=== PATIENT | female | born 1965 | race Caucasian/White ===

== ENCOUNTER 2017-01-31 21:06 | Emergency (ER) | payer MEDICAID ==
[2017-01-31 22:22] LABS: Urine Drugs of Abuse Note Disclamer
[2017-01-31 22:31] LABS: Basophils % (Auto) 0.4 % (0.0-1.8); Eosinophils % (Auto) 2.2 % (0.0-4.3); Hematocrit 41.1 % (30.3-42.9); Hemoglobin 13.8 gm/dl (10.1-14.3); Mean Corpuscular HGB Conc 34 % (30-34); Mean Corpuscular Hemoglobin 29 pg (28-32); Mean Corpuscular Volume 87 fl (79-97); Platelet Count 203 K/mm3 (140-440); Red Cell Distribution Width 13.8 % (13.2-15.2); White Blood Count 5.6 K/mm3 (4.5-11.0)
[2017-01-31 22:32] LABS: Bilirubin,Urine NEG (Negative); Blood,Urine NEG (Negative); Ketones,Urine NEG (Negative); Leukocyte Esterase,Urine NEG (Negative); Nitrite,Urine NEG (Negative); Protein,Urine <15 mg/dL mg/dL (Negative); RBC,Urine < 1.0 /HPF (0.0-6.0); Urobilinogen,Urine < 2.0 mg/dL (<2.0)
--- NOTE | 2017-01-31 22:35 | Emergency Department Report ---
ED Psych HPI - General Chief Complaint: Psych Stated Complaint: MEDICAL CLEARANCE Time Seen by Provider: 01/31/17 22:28 Source: patient Mode of arrival: Ambulatory Limitations: Altered Mental Status (INTOXICATED) - History of Present Illness Initial Comments: 51 YO FEMALE HER FOR DETOX FROM ALCOHOL. PT AHS BEEN DRINKING FOR MORE THAN 30 YRS AND FEELS UNABLE TO TAKE CARE OF HERSELF AND CANNOT STOP DRINKING. SHE IS NOT COOPERATIVE WITH MY REQUEST FOR MORE INFORMATION OR WHETHER SHE DOES OTHER DRUGS MD Complaint: altered mental status (APPEARS INTOXICATED) -: year(s) (CHRONIC HEAVER DRINKER) Associated Psychiatric Symptoms: depression History of same: Yes - Related Data Home Medications Medication Instructions Recorded Confirmed Last Taken Citalopram [celeXA] 20 mg PO QDAY 10/30/15 01/31/17 10/29/15 QUEtiapine [SEROquel] 200 mg PO BID 10/30/15 01/31/17 10/29/15 Topiramate [Topamax] 40 mg PO DAILY 10/30/15 01/31/17 10/29/15 Allergies Allergy/AdvReac Type Severity Reaction Status Date / Time No Known Allergies Allergy Verified 01/31/17 21:14 ED Review of Systems ROS: Stated complaint: MEDICAL CLEARANCE Other details as noted in HPI ED Past Medical Hx - Past Medical History Hx Psychiatric Treatment: Yes (bipolar) - Surgical History Additional Surgical History: hysterectomy - Social History Smoking Status: Current Every Day Smoker Substance Use Type: None - Medications Home Medications: Home Medications Medication Instructions Recorded Confirmed Last Taken Type Citalopram [celeXA] 20 mg PO QDAY 10/30/15 01/31/17 10/29/15 History QUEtiapine [SEROquel] 200 mg PO BID 10/30/15 01/31/17 10/29/15 History Topiramate [Topamax] 40 mg PO DAILY 10/30/15 01/31/17 10/29/15 History ED Physical Exam - General Limitations: Altered Mental Status (INTOXICATED) General appearance: appears intoxicated - Head Head exam: Present: atraumatic, normocephalic - Eye Eye exam: Present: normal appearance, EOMI - ENT ENT exam: Present: mucous membranes moist, other (MULTIPLE MISSING TEETH) - Neck Neck exam: Present: normal inspection, full ROM - Respiratory Respiratory exam: Present: normal lung sounds bilaterally. Absent: respiratory distress, wheezes, rales, rhonchi - Cardiovascular Cardiovascular Exam: Present: regular rate, normal rhythm - GI/Abdominal GI/Abdominal exam: Present: soft. Absent: distended, tenderness, guarding - Rectal Rectal exam: Present: deferred - Extremities Exam Extremities exam: Present: normal inspection, full ROM - Back Exam Back exam: Present: normal inspection, full ROM - Neurological Exam Neurological exam: Present: altered (INTOXICATED) - Psychiatric Psychiatric exam: Present: flat affect - Skin Skin exam: Present: warm, dry, intact, normal color ED Course Vital Signs 01/31/17 01/31/17 21:14 22:33 Temperature 98 F 97.7 F Pulse Rate 92 H 91 H Respiratory 18 16 Rate Blood Pressure 133/118 Blood Pressure 112/63 [Left] O2 Sat by Pulse 98 96 Oximetry ED Medical Decision Making - Lab Data Result diagrams: 01/31/17 22:13 01/31/17 22:13 Critical care attestation.: If time is entered above; I have spent that time in minutes in the direct care of this critically ill patient, excluding procedure time. ED Disposition Clinical Impression: Alcohol abuse, Cocaine abuse Alcohol intoxication Qualifiers: Complication of substance-induced condition: with unspecified complication Qualified Code(s): F10.929 - Alcohol use, unspecified with intoxication, unspecified Depression Qualifiers: Depression Type: unspecified Qualified Code(s): F32.9 - Major depressive disorder, single episode, unspecified Disposition: [id number]/[id number] PSY HOSP/PSY UNIT Is pt being admited?: Yes Does the pt Need Aspirin: No Condition: Stable Referrals: CORAZON GARCIA MD [Primary Care Provider] - 3-5 Days Time of Disposition: 01:54 (WAITING FOR PLACEMENT)
[2017-01-31 22:46] LABS: Anion Gap 20 mmol/L; BUN/Creatinine Ratio 14; Blood Urea Nitrogen 10 mg/dL (7-17); Calcium 9.4 mg/dL (8.4-10.2); Carbon Dioxide 26 mmol/L (22-30); Chloride 97.9 mmol/L (98-107); Glucose 105 mg/dL (65-100); Potassium 3.6 mmol/L (3.6-5.0); Sodium 140 mmol/L (137-145)
[2017-02-01] MEDS ORDERED: MOTRIN PO PRN (03:54)
[2017-02-01] MEDS ORDERED: celeXA PO SCH (10:00)
[2017-02-01] MEDS ORDERED: ATIVAN PO PRN ×2 (14:03)
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
[2017-02-01 20:37] VITALS: BP 132/88
[2017-02-01] MEDS ORDERED: TOPAMAX PO SCH (22:00)
== END 2017-02-01 20:45 ==
LOC: ED 21:06
DX: F10.929 Alcohol use, unspecified with intoxication, unspecified (principal); F14.10 Cocaine abuse, uncomplicated; F17.200 Nicotine dependence, unspecified, uncomplicated; F31.9 Bipolar disorder, unspecified; Y90.9 Presence of alcohol in blood, level not specified; Z90.710 Acquired absence of both cervix and uterus; Z79.899 Other long term (current) drug therapy
CPT/HCPCS: 36415; 80048; 80307; 81001; 82550; 85025; 99285; G0480; 80320